=== PATIENT | female | born 1975 | race Caucasian/White ===

== ENCOUNTER 2020-09-06 17:17 | Emergency (ER) | payer BC, SELFPAY ==
[2020-09-06 17:36] VITALS: BP 120/77; PULSE 86; RESP 16; TEMP 36.4; O2SAT 96; BMI 29.8
--- NOTE | 2020-09-06 17:59 | XRR_ITS ---
PROCEDURE INFORMATION: Exam: XR Right Hip Exam date and time: 09/06/2020 6:13 PM Age: 45 years old Clinical indication: Hip pain; Right hip; Patient HX: Pain x1 month, worse today; Additional info: Pain, x 1month, worse today, with pelvis TECHNIQUE: Imaging protocol: XR Right hip. Views: 1 view hip with pelvis when performed. Total images: 3 COMPARISON: No relevant prior studies available. FINDINGS: Bones/joints: Unremarkable. No acute fracture. No visible significant degenerative disease. No radiographically visible joint effusion. Soft tissues: Unremarkable. XR/XR hip RT 2-3V wo/w pel* [id number] IMPRESSION: No acute findings.
--- NOTE | 2020-09-06 18:30 | ED_ITS ---
HPI - Extremity Problem General: Chief complaint: Extremity Injury, Lower Stated complaint: R HIP INJURY Time Seen by Provider: 09/06/20 17:47 History of Present Illness: HPI Narrative: Patient states right hip is hurting. Patient states she was having intercourse about a month ago was bent over the couch. Said she did not draw the [employer] for her job and had sciatica type pain down from right hip down to her foot. She has been able to work the past month but is continue to hurt and today's been a lot worse and states that she had difficulty moving her foot from the gas pedal to the brake. Pains right hip and right thigh with radiation down to the right foot at times. Denies any vaginal discharge or vaginal pain. MD Complaint: joint pain Onset (ago): week(s) Pain Consistency: intermittent Location: right and lower extremity Severity scale (1-10): 4 Quality: aching Radiation: distal Relieving factors: immobilization Exacerbating factors: range of motion and weight bearing Associated symptoms: Reports no associated symptoms; Deny chest pain, fever(s) or rash Review of Systems Const: Denies: fever(s), chills or body aches Eyes: Denies: change in vision or blurry vision ENMT: Denies: throat pain or nasal congestion Card: Denies: chest pain or dyspnea on exertion Resp: Denies: dyspnea, productive cough or non-productive cough GI: Denies: abdominal pain, nausea or vomiting Musc: Reports: joint pain (Right hip radiating down to the foot. Has gone for about 30 days.); Denies: extremity pain Skin/Breast: Denies: rash Neuro: Denies: headache(s) Psych: Denies: anxiety or depression Mark/Lymph: Denies: easy bruising Physical Exam Const: COMMON NORMALS: no acute distress, average body habitus and patient oriented x3 HENMT: COMMON NORMALS: normocephalic HEAD & SCALP: normal to inspection and normocephalic FACE & SINUS: normal facial exam Eye: COMMON NORMALS: conjunctivae normal GENERAL EYE: appearance normal, both eyes and all related structures CONJUNCTIVA: Yes conjunctivae normal Neck/C-Spine: COMMON NORMALS: no JVD Chest: COMMONS NORMALS: normal inspection of the chest Resp: COMMON NORMALS: normal respiratory effort and clear to auscultation bilaterally AUSCULTATION: clear to auscultation bilaterally Cardio: COMMON NORMALS: no JVD, regular rate and regular rhythm RATE: regular rate RHYTHM: regular rhythm GI: COMMON NORMALS: Normal to inspection, nondistended, normoactive bowel sounds present Back/Pelvis: LUMBAR SPINE/LOWER BACK: Yes straight leg raise positive right Straight leg raise positive details right: at 30 degrees and No straight leg raise positive left PELVIS: Yes Other pelvic findings (Tenderness to the right hip joint. Some tenderness to the thigh.) SACROILIAC JOINTS: Yes SI joints normal COCCYX: Other pelvic findings (Tenderness to the right hip joint. Some tenderness to the thigh.) Extremity: COMMON NORMALS: normal to inspection and full ROM Neuro: COMMON NORMALS: patient oriented x3 Course Vital Signs: Vital signs: Vital Signs Temperature 97.6 F 09/06/20 17:36 Pulse Rate 86 09/06/20 18:34 Respiratory Rate 14 09/06/20 18:34 Blood Pressure 126/84 09/06/20 18:34 Pulse Oximetry 98 09/06/20 18:34 MDM - Extremity (Nontraumatic) MDM Narrative: Medical decision making narrative: Radiology report showed no acute findings. Patient is able ambulate. Patient encouraged to follow-up chiropractor. Discharge Plan Discharge Patient Disposition: Home Clinical Impression: Hip sprain Qualifiers: Encounter type: initial encounter Laterality: right Qualified Code(s): S73.101A - Unspecified sprain of right hip, initial encounter Condition: Stable Prescriptions: New tramadol 50 mg tablet 50 mg PO TID PRN (Reason: pain) Qty: 7 RF: 0 Celebrex 100 mg capsule 100 mg PO BID Qty: 20 RF: 0 No Action atorvastatin 20 mg tablet 20 mg PO BEDTIME RF: 0 ropinirole 0.25 mg tablet 0.25 mg PO DAILY RF: 0 levothyroxine 150 mcg tablet 150 mcg PO DAILY RF: 0 losartan 25 mg tablet 25 mg PO BEDTIME RF: 0 metformin 500 mg tablet extended release 24 hr 500 mg PO BID RF: 0 paroxetine HCl 12.5 mg tablet extended release 24 hr 12.5 mg PO DAILY RF: 0 hydrochlorothiazide 12.5 mg tablet 12.5 mg PO DAILY RF: 0 Ozempic 0.25 mg or 0.5 mg(2 mg/1.5 mL) pen injector 0.25 mg SUBCUT Q7D RF: 0 Discharge Orders: Discharge ED (Routine); Ordered 09/06/20 Ordered By: Albert Rodriguez Discharge Diet: Usual diet Discharge Activity: Increase activity as tolerated Patient Instructions: Hip Sprain (ED), Opioid Safety Activity Restrictions/Additional Instructions: Follow-up with medical provider as directed. Take medications as prescribed. Return to the ER or your medical provider if condition worsens. Please read and understand discharge instructions. If any questions ask please. Recommend follow-up with chiropractor and/or your family medical provider. Coding Level of Care Code ED Business Developer for Chg Fwd Exam Comprehensive
[2020-09-06 18:34] VITALS: BP 126/84; PULSE 86; RESP 14; O2SAT 98
== END 2020-09-06 18:41 | disposition home or self-care (01) ==
PROVIDERS: Emergency Provider Nurse Practitioner Family
DX: S73.101A Unspecified sprain of right hip, initial encounter (principal); X50.1XXA Overexertion from prolonged static or awkward postures, initial encounter
CPT/HCPCS: 73502; 99282